=== PATIENT | male | born 1990 | race Caucasian/White ===

== ENCOUNTER 2023-03-02 04:38 | Emergency (ER) | payer BC ==
[~2023-03-02] VITALS: Ht 182.9 cm; Wt 99.8 kg
[2023-03-02 05:06] VITALS: BP_SYST 136; PULSE 62; RESP 18; TEMP 98.3
[2023-03-02] MEDS ORDERED: NACL 0.9% 1,000 ML IV ONE (05:30)
[2023-03-02] MEDS ORDERED: MORPHINE 4 MG INJ. 4 MG/ML VIAL IVP ONE (05:30)
[2023-03-02] MEDS ORDERED: ONDANSETRON HCL 4 MG/2 ML VIAL IVP ONE (05:30)
[2023-03-02 05:48] LABS: BASOPHILS % (AUTO) 0.3 % (0.0-2.0); EOSINOPHILS # (AUTO) 0.1 K/uL (0.0-0.4); EOSINOPHILS % (AUTO) 0.9 % (0.0-4.0); HEMATOCRIT 41.5 % (36-54); HEMOGLOBIN 13.9 g/dL (14.0-18.0); LYMPHOCYTES # (AUTO) 1.6 K/uL (1.0-5.5); LYMPHOCYTES % (AUTO) 14.9 % (20.5-51.5); MEAN CORPUSCULAR HEMOGLOBIN 30 pg (27-31); MEAN CORPUSCULAR HGB CONC 33 % (32-36); MEAN CORPUSCULAR VOLUME 90 fL (79.0-98.0); MONOCYTES # (AUTO) 0.7 K/uL (0.0-1.0); MONOCYTES % (AUTO) 6.1 % (1.7-9.3); NEUTROPHILS # (AUTO) 8.5 K/uL (1.8-7.7); NEUTROPHILS % (AUTO) 77.8 % (40.0-70.0); PLATELET COUNT (AUTO) 304 K/uL (130-430); RED CELL DISTRIBUTION WIDTH 13.7 % (9.0-15.0); WHITE BLOOD COUNT (AUTO) 10.9 K/uL (4.8-10.8)
[2023-03-02 05:59] LABS: CALCIUM 8.7 mg/dL (8.4-11.0); CREATININE 0.78 mg/dL (0.55-1.30); POTASSIUM 3.8 mmol/L (3.5-5.1)
[2023-03-02 06:06] LABS: ALBUMIN 4.3 g/dL (3.4-4.8); TOTAL BILIRUBIN 0.5 mg/dL (0.0-1.0); TOTAL PROTEIN, SERUM 8.3 g/dL (6.4-8.3)
[2023-03-02] MEDS ORDERED: FAMOTIDINE PF 20 MG/2 ML VIAL IVP ONE (06:45)
[2023-03-02] MEDS ORDERED: cefTRIAXone 1 GM IVPB PREMIX 50 ML IV ONE (06:45)
[2023-03-02] MEDS ORDERED: FAMO40TA71 PO (06:59)
[2023-03-02] MEDS ORDERED: LEVO750T64 PO (06:59)
[2023-03-02] MEDS ORDERED: AUG875 PO (06:59)
[2023-03-02 07:34] LABS: BILIRUBIN,URINE NEGATIVE (NEGATIVE); BLOOD, URINE NEGATIVE (NEGATIVE); CLARITY/URINE Clear (CLEAR); COLOR,URINE YELLOW (YELLOW); GLUCOSE,URINE NEGATIVE (NEGATIVE); KETONES,URINE 2+ (NEGATIVE); LEUKOCYTE ESTERASE ,URINE NEGATIVE (NEGATIVE); NITRITE, URINE NEGATIVE (NEGATIVE); PROTEIN URINE 1+ (NEGATIVE); UROBILINOGEN,URINE 0.2 (0.2-1.0)
[2023-03-02 07:55] LABS: BACTERIA,URINE RARE /HPF (None Seen)
[2023-03-02 08:04] VITALS: BP_SYST 132; PULSE 65; RESP 18; TEMP 97.8; O2SAT 99
== END 2023-03-02 08:07 | disposition home or self-care (01) ==
LOC: SED 04:38
DX: K80.45 Calculus of bile duct with chronic cholecystitis with obstruction (principal); J18.1 Lobar pneumonia, unspecified organism; R10.13 Epigastric pain; R11.0 Nausea; Z79.899 Other long term (current) drug therapy
CPT/HCPCS: 99285; 74176; 96365; 96375; 76700; 96361; 80053; 81000; 82150; 83690; 85025; 87040; 36415; 76376; J0696; J3490; J2405; J2270; J7030